=== PATIENT | male | born 1945 | race Caucasian/White ===

== ENCOUNTER 2017-08-02 09:47 | Emergency (ER) | payer MEDICARE, OTHER ==
[2017-08-02] MEDS ORDERED: oxyCODONE 5 MG TABLET PO STA (11:14)
--- NOTE | 2017-08-02 11:18 | XRAY Report ---
EXAM: RIGHT SHOULDER RADIOGRAPHY 3 VIEWS EXAM DATE: 08/02/2017. CLINICAL HISTORY: Shoulder injury. COMPARISON: None. TECHNIQUE: AP, Grashey and scapular Y views. FINDINGS: Bones: Comminuted spiral fracture of the mid right humerus, the distal component displaced medial ten don are sent posterior 7 mm. The fracture line begins at the distal end of the stem of a right should er prosthesis. Joints: Right shoulder arthroplasty. 3 mm lucent line adjacent to the distal end of the stem of the p rosthesis. No dislocation. Soft tissues: No calcifications. Visualized right lung is clear. IMPRESSION: Displaced spiral fracture of the mid right humerus, the fracture line beginning at the di stal end of the right shoulder prosthesis. 3 mm lucent line at the distal end of the stem of the humeral component of the prosthesis, this could be from the trauma or prosthesis loosening. [facility] Referring Provider Line: [phone] SITE ID: [id number]
--- NOTE | 2017-08-02 11:35 | ED Physician Documentation ---
History of Present Illness - Stated complaint Stated Complaint: SHOULDER INJURY - Chief complaint Chief Complaint: Ext Problem - Additonal information Additional information: hx from pt healthy 72 male with no bone dz many yr out form a partial shoulder replacement was playing golf this AM in his backswing felt a severe sharp pain and heard a crack Review of Systems Musculoskeletal: reports: Extremity pain PD PAST MEDICAL HISTORY - Past Medical History Cardiovascular: Hypertension - Past Surgical History Past Surgical History: Yes Ortho: Knee replacement, Other - Present Medications Home Medications: Ambulatory Orders Medication Instructions Recorded Confirmed Cyclobenzaprine [Flexeril] 10 mg PO TID PRN #20 tablet 08/02/17 Finasteride 5 mg DAILY 08/02/17 08/02/17 Lisinopril 20 mg DAILY 08/02/17 08/02/17 Pregabalin [Lyrica] 200 mg DAILY 08/02/17 08/02/17 Tamsulosin [Flomax] 0.4 mg DAILY 08/02/17 08/02/17 oxyCODONE [Roxicodone] 5 mg PO Q4-6H #20 tablet 08/02/17 - Allergies Allergies/Adverse Reactions: Allergies Allergy/AdvReac Type Severity Reaction Status Date / Time No Known Drug Allergies Allergy Verified 08/02/17 10:01 - Social History Does the pt smoke?: No Smoking Status: Never smoker PD ED PE NORMAL - Vitals Vital signs reviewed: Yes - Cardiac Cardiac: RRR - Respiratory Respiratory: No respiratory distress, Clear bilaterally - Extremities Extremities: Other (clavicle NT, humeral head appears seated and NT, bicep region swollen and very TTP, diff flexing bicep, TTP mid upper arm, strong pedal pulse, finger ABD OK thumb up wrist ext 5/5 but weak with flexing bicep and wrist) Results - Vitals Vitals: Vital Signs - 24 hr 08/02/17 08/02/17 09:57 13:46 Temperature 36.1 C L 35.8 C L Heart Rate 71 65 Respiratory 17 18 Rate Blood Pressure 180/66 H 116/73 O2 Saturation 97 100 Oxygen O2 Source Room air - Rads (name of study) RUE Radiology: See rad report (displaced spiral fx R humerus beginning and inf aspect pf prostehsis with periprosthtic lucency suggesting loosening) PD MEDICAL DECISION MAKING - ED course ED course: periprosthetic fx with neuro sx will consult ortho\pt seen by ortho Dr Hurtado rec copation splint - or in ER case an upper arm sugar tong + + splint, dc ome pain meds, fup ortho clinic for specialized casting Departure - Departure Disposition: 01 Home, Self Care Clinical Impression: Spiral fracture of shaft of humerus Qualifiers: Encounter type: initial encounter Fracture type: closed Fracture alignment: displaced Laterality: right Qualified Code(s): S42.341A - Displaced spiral fracture of shaft of humerus, right arm, initial encounter for closed fracture Condition: Good Instructions: ED Fx Upper Ext, ED Splint Care Fiberglass Follow-Up: [facility] [Provider Group] Prescriptions: Cyclobenzaprine [Flexeril] 10 mg PO TID PRN #20 tablet PRN Reason: Spasms oxyCODONE [Roxicodone] 5 mg PO Q4-6H #20 tablet Comments: You have a spiral fracture of the humerus just below the prosthesis. It is unusual that this big bone would break with just swinging a golf club - after you heal you may need to have some bone studies done The orthopedic doctor would like you to follow up in clinic to be fit for a specialized weighted cast to keep the bone straight while it heals I have prescribed pain medications as well as pain for the muscle spasms Discharge Date/Time: 08/02/17 13:57
[2017-08-02 13:47] VITALS: BP 116/73
== END 2017-08-02 13:57 | disposition home or self-care (01) ==
LOC: ED 09:47
DX: S42.341A Displaced spiral fracture of shaft of humerus, right arm, initial encounter for closed fracture (principal); X50.1XXA Overexertion from prolonged static or awkward postures, initial encounter; Y93.53 Activity, golf; Y92.39 Other specified sports and athletic area as the place of occurrence of the external cause; I10 Essential (primary) hypertension
CPT/HCPCS: 73030; 99283; 99284; A9270

== ENCOUNTER 2019-08-09 18:16 | Emergency (ER) | payer MEDICARE, OTHER ==
--- NOTE | 2019-08-09 18:46 | ED Physician Documentation ---
History of Present Illness - Stated complaint Stated Complaint: GLF, COnfusion - Chief complaint Chief Complaint: General - History obtained from History obtained from: Patient, Family - History of Present Illness Timing: Prior to arrival, How many hours ago (2) - Additonal information Additional information: 74-year-old gentleman presents to the emergency department after a ground-level fall this afternoon. Patient reports that he was climbing the stairs, missed the first step and fell backwards striking the right side of his face against the siding of the house. He remembers the fall however he does not remember getting up and walking back into the house. Shortly after the fall his reports the patient was a little bit confused he went to check on the dog twice but does not remember checking on the dog the first time. Patient and deny any slurred speech facial droop or weakness in the arms. Patient has no previous history of traumatic brain injury CVA or TIA. Past medical history is most significant for hypertension hypertrophy of the prostate and mild depression. Patient is not taking any anticoagulation. At present patient is alert oriented x4 has no focal neuro deficits. His gait is normal. He denies any current headache back pain or neck pain. he has had no nausea or vomiting since the fall Review of Systems Constitutional: denies: Fever, Chills, Myalgias, Fatigue Eyes: denies: Loss of vision Ears: denies: Loss of hearing, Ear pain, Drainage/discharge Nose: denies: Rhinorrhea / runny nose Cardiac: denies: Chest pain / pressure, Palpitations Respiratory: denies: Dyspnea PD PAST MEDICAL HISTORY - Past Medical History Cardiovascular: Hypertension : Benign prostate hypertrophy - Past Surgical History Past Surgical History: Yes Ortho: Knee replacement, Other - Present Medications Home Medications: Ambulatory Orders Medication Instructions Recorded Confirmed Cyclobenzaprine [Flexeril] 10 mg PO TID PRN #20 tablet 08/02/17 Finasteride 5 mg DAILY 08/02/17 08/02/17 Pregabalin [Lyrica] 200 mg DAILY 08/02/17 08/02/17 Tamsulosin [Flomax] 0.4 mg DAILY 08/02/17 08/02/17 lisinopriL [Lisinopril] 20 mg DAILY 08/02/17 08/02/17 oxyCODONE [Roxicodone] 5 mg PO Q4-6H #20 tablet 08/02/17 - Allergies Allergies/Adverse Reactions: Allergies Allergy/AdvReac Type Severity Reaction Status Date / Time No Known Drug Allergies Allergy Verified 08/02/17 10:01 - Social History Does the pt smoke?: No Smoking Status: Never smoker PD ED PE NORMAL - General General: Alert and oriented X 3, No acute distress, Well developed/nourished - HEENT HEENT: Atraumatic, PERRL, EOMI, Ears normal, Moist mucous membranes - Neck Neck: Supple, no meningeal sign, No bony TTP, No adenopathy - Cardiac Cardiac: RRR, No murmur - Respiratory Respiratory: No respiratory distress - Abdomen Abdomen: Normal bowel sounds, Non tender - Back Back: No CVA TTP - Derm Derm: Normal color, Warm and dry - Extremities Extremities: No deformity - Neuro Neuro: Alert and oriented X 3, 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, No motor deficit, No sensory deficit, Normal speech Eye Opening: Spontaneous Motor: Obeys Commands Verbal: Oriented GCS Score: 15 - Psych Psych: Normal mood, Normal affect Results - Vitals Vitals: Vital Signs - 24 hr 08/09/19 08/09/19 08/09/19 18:26 18:29 19:34 Temperature 36.8 C Heart Rate 95 88 83 Respiratory 16 20 18 Rate Blood Pressure 178/74 H 164/88 H 152/88 H O2 Saturation 100 97 99 08/09/19 19:35 Temperature Heart Rate Respiratory 16 Rate Blood Pressure O2 Saturation Oxygen O2 Source Room air - Rads (name of study) CT Head Radiology: Final report received (no acute intracranial pathology) PD MEDICAL DECISION MAKING - ED course Complexity details: reviewed results, re-evaluated patient, d/w patient ED course: 74-year-old male here for evaluation of minor confusion after he fell backwards from a single step this afternoon striking the right side of his head on the siding of his house. - Patient's reports that he was somewhat confused after the fall but here in the emergency department his affect has been appropriate without any focal neuro deficits or confusion noted. - A head CT was completed and it shows no acute intracranial pathology. - I suspect that this gentleman has a mild concussion related to the fall. - I spent some time discussing concussion syndrome with the patient and his and we discussed emergent return precautions that include suddenly severe headache uncontrolled vomiting. Departure - Departure Disposition: 01 Home, Self Care Clinical Impression: Fall (on) (from) unspecified stairs and steps, initial encounter Concussion Qualifiers: Encounter type: initial encounter Loss of consciousness presence/duration: without LOC Qualified Code(s): S06.0X0A - Concussion without loss of consciousness, initial encounter Condition: Stable Instructions: Brain Injury Mild Traum Concussion Comments: Tacho the CT of your head looks good no findings of broken skull or bleeding. It is normal for you to have a minor headache over the next few days. You may take Tylenol [id number] for that. However if you develop a suddenly severe headache have 2 or more episodes of uncontrolled vomiting, have any slurred speech facial droop or are acting inappropriate or confused please return immediately to the emergency department.
--- NOTE | 2019-08-09 19:59 | CT Report ---
Reason: fall, striking right side head. mild confusion. Procedure Date: 08/09/2019 Accession Number: [id number] / [id number] Procedure: CT - HEAD WO CPT Code: Final Report FULL RESULT: PROCEDURE: HEAD WO INDICATIONS: fall, striking right side head. mild confusion. TECHNIQUE: Noncontrast 4.5 mm thick angled axial sections acquired from the foramen magnum to the vertex. For radiation dose reduction, the following was used: automated exposure control, adjustment of mA and/or kV according to patient size. COMPARISON: None. FINDINGS: Image quality: Excellent. CSF spaces: Basal cisterns are patent. No extra-axial fluid collections. Ventricles are normal in size and shape. Brain: No midline shift. No intracranial masses or hemorrhage. Trejo-white matter interface is normal. Skull and face: Calvarium and visualized facial bones are intact, without suspicious lesions. Sinuses: Visualized sinuses and mastoids are clear. IMPRESSION: CT head without acute intracranial abnormalities. No acute calvarial fractures. Reviewed by: Sebastián Griffin MD on 08/09/2019 7:57 PM PDT Approved by: Sebastián Griffin MD on 08/09/2019 7:57 PM PDT Station ID: [id number]
[2019-08-09 20:11] VITALS: BP 141/81
== END 2019-08-09 20:15 | disposition home or self-care (01) ==
LOC: ED 18:16
DX: S06.0X0A Concussion without loss of consciousness, initial encounter (principal); W10.8XXA Fall (on) (from) other stairs and steps, initial encounter; Y92.008 Other place in unspecified non-institutional (private) residence as the place of occurrence of the external cause; I10 Essential (primary) hypertension; N40.0 Benign prostatic hyperplasia without lower urinary tract symptoms; F32.9 Major depressive disorder, single episode, unspecified
CPT/HCPCS: 70450; 99284